=== PATIENT | male | born 1965 | race Caucasian/White ===

== ENCOUNTER 2023-05-26 10:05 | Outpatient (RCR) | payer BC, SELFPAY | END 2023-09-23 23:59 | disposition home or self-care (01) | PROVIDERS: PCP Family Medicine; Visit Provider Orthopaedic Surgery | DX: Z98.890 Other specified postprocedural states (principal); M25.641 Stiffness of right hand, not elsewhere classified; R53.1 Weakness; Z51.89 Encounter for other specified aftercare | CPT/HCPCS: 97110; 97165; X5282 ==